=== PATIENT | male | born 1980 | race Caucasian/White ===

== ENCOUNTER → 2019-06-06 13:39 | Outpatient (CLI) | payer SELFPAY | PROVIDERS: PCP Internal Medicine | DX: Z04.89 Encounter for examination and observation for other specified reasons (principal) | CPT/HCPCS: 36415 ==

== ENCOUNTER → 2019-11-06 09:52 | Outpatient (CLI) | payer SELFPAY ==
[2019-11-06 10:19] LABS: Urine Drug Scr, Empl Non-NIDA See Separate Report
== END ==
PROVIDERS: PCP Internal Medicine
DX: Z04.89 Encounter for examination and observation for other specified reasons (principal)
CPT/HCPCS: 81099

== ENCOUNTER → 2021-04-14 16:47 | Outpatient (CLI) | payer SELFPAY | PROVIDERS: PCP Internal Medicine | DX: Z02.1 Encounter for pre-employment examination (principal) | CPT/HCPCS: 36415 ==

== ENCOUNTER → 2021-05-28 11:30 | Outpatient (CLI) | payer OTHER, SELFPAY ==
[2021-05-28 11:47] LABS: Specimen Label KIT
== END ==
PROVIDERS: PCP Internal Medicine
DX: Z02.83 Encounter for blood-alcohol and blood-drug test (principal)
CPT/HCPCS: 36415

== ENCOUNTER → 2021-07-02 16:07 | Outpatient (CLI) | payer OTHER, SELFPAY ==
[2021-07-02 16:21] LABS: Specimen Label UUSDTL KIT
== END ==
PROVIDERS: PCP Internal Medicine
DX: Z02.83 Encounter for blood-alcohol and blood-drug test (principal)
CPT/HCPCS: 36415

== ENCOUNTER → 2021-10-13 09:29 | Outpatient (CLI) | payer SELFPAY ==
[2021-10-13 10:18] LABS: Specimen Label Y
== END ==
PROVIDERS: PCP Internal Medicine
DX: Z02.89 Encounter for other administrative examinations (principal)
CPT/HCPCS: 36415